=== PATIENT | female | born 1975 | race Caucasian/White ===

== ENCOUNTER 2017-11-22 15:55 | Emergency (ER) | payer OTHER ==
[~2017-11-22] VITALS: Ht 154.9 cm; Wt 62.7 kg
[2017-11-22 15:58] VITALS: TEMP 97.7
[2017-11-22] MEDS ORDERED: ARMOUR THYROID90 MG PO (16:20)
[2017-11-22 16:39] LABS: BASO % 0.4 % (0.0-2.0); EOS # 0.1 (0.0-0.7); EOS % 1.6 % (0-4.0); GRAN # 5.2 (1.4-6.5); HEMOGLOBIN 12.6 g/dl (12.5-16.0); LYMPH # 1.3 (1.2-3.4); LYMPH % 17.9 % (20.0-51.0); MEAN CELL VOLUME 87 fl (80.0-100.0); MEAN CORPUSCULAR HEMOGLOBIN 30 pg (27.0-31.0); MEAN CORPUSCULAR HGB CONC 34 g/dl (33.0-37.0); MEAN PLATELET VOLUME 10.7 fl (7.4-10.4); MONO # 0.5 (0.1-0.6); MONO % 6.8 % (1.7-9.3); PLATELET COUNT 204 K/mm3 (130-400); RED BLOOD COUNT 4.25 M/mm3 (4.10-5.30); REDCELL DISTRIBUTION WIDTH-CV 11.8 % (11.5-14.5)
[2017-11-22 16:44] LABS: HEMATOCRIT 36.8 % (37.0-47.0)
[2017-11-22 16:54] LABS: C-REACTIVE PROTEIN 0.7 mg/dL (0.0-0.9); CALCIUM 9.5 mg/dL (8.4-10.2); CREATININE, serum 0.71 mg/dL (0.52-1.25); TOTAL PROTEIN 7.5 gm/dL (6.4-8.2)
[2017-11-22] MEDS ORDERED: ZOFRAN ODT4 MG PO (17:11)
[2017-11-22 17:57] VITALS: BP 105/48; PULSE 68
== END 2017-11-22 17:45 | disposition home or self-care (01) ==
LOC: COL.ER 15:55
PROVIDERS: Emergency Medicine
DX: S80.11XA Contusion of right lower leg, initial encounter (principal); R11.2 Nausea with vomiting, unspecified; G43.909 Migraine, unspecified, not intractable, without status migrainosus; Y04.2XXA Assault by strike against or bumped into by another person, initial encounter
CPT/HCPCS: J2060; J2175; J2405; J7030

== ENCOUNTER 2017-12-25 09:30 | Outpatient (RCR) | payer OTHER ==
[~2017-12-25 09:30] MED LIST: ARMOUR THYROID90 MG PO; ZOFRAN ODT4 MG PO
== END 2017-12-26 10:48 | disposition home or self-care (01) ==
LOC: WSC 09:30
DX: M79.661 Pain in right lower leg (principal); R26.89 Other abnormalities of gait and mobility; R22.41 Localized swelling, mass and lump, right lower limb; Y04.2XXD Assault by strike against or bumped into by another person, subsequent encounter; Y99.0 Civilian activity done for income or pay

== ENCOUNTER 2018-01-27 15:01 | Outpatient (RCR) | payer OTHER | END 2018-01-28 14:46 | disposition home or self-care (01) | LOC: WSOH 15:01 | DX: S80.11XA Contusion of right lower leg, initial encounter (principal); S80.01XA Contusion of right knee, initial encounter; S90.32XA Contusion of left foot, initial encounter; Y04.2XXA Assault by strike against or bumped into by another person, initial encounter; Y93.F9 Activity, other caregiving; Y92.89 Other specified places as the place of occurrence of the external cause; Y99.0 Civilian activity done for income or pay; Z87.891 Personal history of nicotine dependence ==